=== PATIENT | male | born 1960 | race Caucasian/White ===

== ENCOUNTER → 2019-01-30 | Day surgery (SDC) | payer BC ==
[~2019-01-30] VITALS: Ht 177.8 cm; Wt 108.9 kg
[~2019-01-30] MED LIST: AMLO10TA8 PO; BUPIVAC MPF-EPI 0.5%-1:200000 30 ML VIAL. ONE; DESFLURANE 31 TO 60 MINUTES IH ONE; DEXAMETHASONE SOD PHOS 4 MG/ML VIAL ONE; GLYCOPYRROLATE 1 MG/5 ML VIAL. ONE; HYDR12.58 PO; IPRATRPIUM/ALBUTEROL 0.5/2.5MG 3 ML NEBU. NEB ONE; IV RINGERS,LACTATED 1000ML 1,000 ML IV SCH; LIDOCAINE 2% PF 5 ML VIAL. ONE; LISI-334 PO; NEOSTIGMINE METHYLSULFATE 5 MG/5 ML SYRINGE. ONE; ONDANSETRON PF 4 MG/2 ML VIAL. IV PRN; ONDANSETRON PF 4 MG/2 ML VIAL. ONE; OXYC1TAB15 PO; PROCHLORPERAZINE 10 MG/2 ML VIAL. IV PRN; PROPOFOL 20 ML IV ONE; ROCURONIUM 50 MG/5 ML VIAL. ONE; SUCCINYLCHOLINE 200 MG/10 ML VIAL. ONE; ceFAZolin 2GM PREMIX 2 GM/50 ML BAG IV ONE; fentaNYL PF VIAL 100 MCG/2 ML VIAL IV PRN; fentaNYL PF VIAL 100 MCG/2 ML VIAL ONE; oxyCODONE/APAP 5/325 1 TAB TABLET PO ONE
--- NOTE | 2019-01-30 08:42 | PDOC4 ---
Operative Note Operative Note Date: 01/30/2019 Preoperative diagnosis: Incarcerated umbilical hernia Postoperative diagnosis: Same Procedure: Robotic-assisted laparoscopic umbilical hernia repair with mesh Surgeon: Devin Specimen: None Dictation: Patient is a 58-year-old gentleman described a painful bulge at his umbilicus procedure of robotic-assisted laparoscopic hernia repair with mesh was explained to the patient in detail all risks benefits were also discussed including bleeding infection injury to intra-abdominal contents possibly necessitating further or open operations alternatives to this procedure also discussed with the patient who seemed to understand and gave both verbal and written consent to have the procedure performed. Patient was taken to the operative room placed the supine position general anesthesia was initiated once patient was sleep and intubated his abdomen was prepped and draped usual sterile fashion using ChloraPrep. An area in the left upper quadrant was injected with quarter percent Marcaine with epinephrine incision was made with 11 blade scalpel and a 5 mm Visiport was placed under direct visualization into the abdomen and a pneumoperitoneum was created 5 mm camera was placed within the abdomen which was inspected was noted that there is a small umbilical hernia incarcerated with omental fat and a few adhesions to the left of the midline. A 8mm da [place] port was placed in the left mid abdomen a 8mm da [place] port was placed in the left lower abdomen and the 5 mm Visiport was changed out for 8mm da [place] port that eventually robotic was brought in and docked all port sites using grasper and Endo Rigo scissors the adhesions were taken down off the anterior abdominal wall and the hernia contents were reduced from the hernia defect. The hernia defect was then closed with 20V LOC nonabsorbable suture. Ventral light ST mesh was then placed over the hernia defect this was sewn into place with a running 20V LOC absorbable suture. At this point the pneumoperit oneum was reduced all ports removed. The skin at all port sites were closed for septic or Monocryl Mastisol Steri-Strips and island dressings were applied. Patient was awakened and asked bated operating room taken to recovery in stable condition all sponge instrument needle counts listed as correct estimated blood loss 5 mL NAKIA GILLILAND MD Jan 30, 2019 08:42
--- NOTE | 2019-01-30 08:43 | DISCH ---
DISCHARGE INSTRUCTIONS Condition on Discharge Condition on Discharge: Stable Activity After Discharge Activity Instructions for Disc: Avoid exertion Other activity instructions: no lifting more than 20 pounds for 2 weeks Diet after Discharge Diet after Discharge: Regular Wound Incision Care Other wound/incision instructi: May shower in 24 hours Contacting the after DC Call your doctor for: If your condition worsens Follow-Up Follow up with: Dr. Gilliland in 2 weeks NAKIA GILLILAND MD Jan 30, 2019 08:43
[2019-01-30 10:00] VITALS: BP 131/70
== END ==
LOC: SURG 06:14
PROVIDERS: ATTEND Surgery
DX: K42.0 Umbilical hernia with obstruction, without gangrene (principal); I10 Essential (primary) hypertension; E78.00 Pure hypercholesterolemia, unspecified; J44.9 Chronic obstructive pulmonary disease, unspecified; E66.9 Obesity, unspecified; M19.90 Unspecified osteoarthritis, unspecified site; F17.210 Nicotine dependence, cigarettes, uncomplicated; Z98.890 Other specified postprocedural states
CPT/HCPCS: 49653; 94640; A7015; C1781; J0330; J0696; J1100; J2001; J2405; J2704; J2710; J3010; J3490; J7620; S2900

== ENCOUNTER → 2021-02-07 | Outpatient (CLI) | payer BC ==
[2019-01-30 10:00] VITALS: BP 131/70
[~2021-02-07] MED LIST changes: +AMLO-187 PO; -AMLO10TA8 PO; -BUPIVAC MPF-EPI 0.5%-1:200000 30 ML VIAL. ONE; -DESFLURANE 31 TO 60 MINUTES IH ONE; -DEXAMETHASONE SOD PHOS 4 MG/ML VIAL ONE; +GABA300C18 PO; -GLYCOPYRROLATE 1 MG/5 ML VIAL. ONE; -IPRATRPIUM/ALBUTEROL 0.5/2.5MG 3 ML NEBU. NEB ONE; -IV RINGERS,LACTATED 1000ML 1,000 ML IV SCH; -LIDOCAINE 2% PF 5 ML VIAL. ONE; -LISI-334 PO; +LISI20TA18 PO; -NEOSTIGMINE METHYLSULFATE 5 MG/5 ML SYRINGE. ONE; -ONDANSETRON PF 4 MG/2 ML VIAL. IV PRN; -ONDANSETRON PF 4 MG/2 ML VIAL. ONE; -PROCHLORPERAZINE 10 MG/2 ML VIAL. IV PRN; -PROPOFOL 20 ML IV ONE; -ROCURONIUM 50 MG/5 ML VIAL. ONE; -SUCCINYLCHOLINE 200 MG/10 ML VIAL. ONE; -ceFAZolin 2GM PREMIX 2 GM/50 ML BAG IV ONE; -fentaNYL PF VIAL 100 MCG/2 ML VIAL IV PRN; -fentaNYL PF VIAL 100 MCG/2 ML VIAL ONE; -oxyCODONE/APAP 5/325 1 TAB TABLET PO ONE
--- NOTE | 2021-02-07 15:56 | PDOC1 ---
INITIAL PAIN CONSULT DATE OF SERVICE: DOS: DATE: 02/07/21 TIME: 15:36 CHIEF COMPLAINT: Chief Complaint: Right low back and flank pain HISTORY OF PRESENT ILLNESS: 60-year-old male presents history of pain low back and flank on the right side for about 3 years beginning after a lipoma excision in this area patient reports that since the surgery he has had the pain in this area which has never improved although it is intermittent in intensity. Patient reports it is in the low back does not radiate significantly across the low back but on the right side only occasionally will radiate to his right leg in the posterior lateral aspect if he stepped down hard from a higher surface or if he is standing for prolonged periods but this is infrequent. Patient reports pain is in the right low back just lateral to the incision scar from previous lipoma excision describes it as sharp and shooting intermittent intensity some days much better than others generally does not awaken from sleep at night does not affect his bowel or bladder control but can affect his ability to walk specially when the pain is radiating into the right leg foot which again is not frequently. Patient has had physical therapy in the past has done some stretching strength exercises and uses massage techniques for the area but is not decreasing the pain significantly. Patient not found any medications have helped he tried Tylenol as well as [id number] Motrin which did not decrease the pain significantly. Patient has had no diagnostic studies this point regarding the area of the low back. PAST MEDICAL HISTORY: PMH: Hypertension, shortness of breath, cigarette smoking PREVIOUS SURGERIES: Past Surgical Hx: Tonsillectomy, umbilical hernia repair, lipoma excision CURRENT MEDICATIONS: Current Meds: Active Scripts Medications Dose Route/Sig Max Daily Dose Days Date Category Gabapentin (Gabapentin) 300 Mg Capsule 300 Mg PO BID 02/07/21 Reported Hydrochlorothiazide Tablet (Hydrochlorothiazide) 12.5 Mg Tablet 12.5 Mg PO DAILY 01/29/19 Reported Lisinopril 20 Mg Tablet 20 Mg PO BID 01/29/19 Reported ALLERGIES; Allergies: Coded Allergies: butorphanol (Verified Allergy, Severe, ANAPHYLAXIS, 01/30/19) FAMILY HISTORY: Family Hx: Heart disease SOCIAL HISTORY: Social Hx: Patient is nondrug alcohol smokes about a pack and 1/2 cigarettes and has for 45 years continues to smoke patient not use any illegal illicit or recreational drugs patient is lives in [place], [place] REVIEW OF SYSTEMS: ROS: Positive for those items mentioned in history of present illness, all systems are reviewed, otherwise negative ,and are complete full and well-documented on patient's chart. PHYSICAL EXAM: VS: Blood pressure is 155/99 pulse 88 respirations 18 temperature is 98.0 F height is 5 feet 10 inches weight is 281 pounds PE: PHYSICAL EXAMINATION: GENERAL: The patient is awake, alert, oriented, appropriate, very pleasant in demeanor HEENT: Shows normocephalic, atraumatic. Extraocular movements are intact and symmetrical NECK: Shows anterior throat supple without palpable lymphadenopathy noted. Swallow reflex symmetrical. CHEST: Shows normal on inspection. Breath sounds are clear bilaterally, coarse but no rales rhonchi or wheezes auscultated. HEART: Shows S1, S2 clear. No murmurs auscultated. ABDOMEN: Soft, nontender, nondistended, obese. No palpable organomegaly is noted. No rebound or guarding demonstrated. BACK: Shows spine grossly in the midline. Normal-appearing cervical lordotic curvature. There is slightly increased thoracic kyphosis, some flattening of the lumbar lordotic curvature. Lumbar paraspinous muscles show symmetrical on inspection, on palpation shows some moderate tenderness diffusely throughout the upper, middle and lower distribution of the paraspinous muscles bilaterally. Patient has well-healed surgical scar in the right low back in a transverse fashion. Lateral to this approximately 10 cm is very tender area of overlying skin without any palpable masses or soft tissue structures that are palpable but is very well demarcated area of about 8 cm in diameter which is very tender with palpation in the flank wall itself without radiation. The patient has good rotational motion of the lumbar spine, both laterally as well as extension and flexion without significant difficulty. No tenderness over the spinous processes, sacrum or sacroiliac regions. EXTREMITIES: Lower extremities show deep tendon reflexes 2+ in the patellar and tendo calcaneus tendons. Motor exam is 5 on a scale of 5 with right dorsiflexion, extension, quadriceps and hamstring flexion and 5/5 on the left. Peripheral pulses are 1+ posterior tibial. No peripheral edema is noted bilaterally. Lower extremities are warm and dry to touch, equal in color and appearance. SKIN: Shows warm and dry, good turgor. No edema. No sores, rashes or bruising throughout. IMPRESSION: Impression: 60-year-old male with 3-year history pain right low back and flank lateral to previous incisional scar from lipoma excision. Hypertension Shortness of breath Cigarette smoking Plan: Options were discussed with the patient including physical therapies medical management and interventional techniques. Patient would like to pursue interventional techniques. 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 We waited preauthorization with patient's insurance provider and plan on peripheral nerve block in the flank wall lateral to the surgical incision. JUAN LUIS REYES MD Feb 07, 2021 15:56
== END | disposition home or self-care (01) ==
LOC: PNCL 09:04
PROVIDERS: ATTEND Anesthesiology
DX: R10.31 Right lower quadrant pain (principal); I10 Essential (primary) hypertension; E78.00 Pure hypercholesterolemia, unspecified; J44.9 Chronic obstructive pulmonary disease, unspecified; E66.9 Obesity, unspecified; Z87.891 Personal history of nicotine dependence; Z79.899 Other long term (current) drug therapy; Z98.890 Other specified postprocedural states; Z88.8 Allergy status to other drugs, medicaments and biological substances; Z82.49 Family history of ischemic heart disease and other diseases of the circulatory system
CPT/HCPCS: G0463

== ENCOUNTER → 2021-02-15 | Outpatient (CLI) | payer BC ==
[2019-01-30 10:00] VITALS: BP 131/70
[~2021-02-15] MED LIST changes: +BUPIVACAINE MPF 0.5% 30 ML VIAL. ONE; +methylPREDNISolone ACETATE 40 MG/ML VIAL. ONE
--- NOTE | 2021-02-15 08:35 | PDOC ---
Progress Note - Pain Clinic Date of Service: DOS: DATE: 02/15/21 TIME: 08:30 Diagnosis: Dx: Right posterior flank pain, status post lipoma excision History or Present Illness: HPI: 60-year-old male returns for follow-up status post initial evaluation and preauthorization for peripheral nerve block for postoperative pain chronic, right flank at site of previous lipoma excision approximately 3 years prior. Patient reports still significant pain in the right lobe back and flank near the area of his incisional excision of lipoma. Patient reports is worse with sitting walking standing changing positions riding in his truck patient reports generally does not awaken him sleep at night feels better with laying down patient reports the pain is 8 on scale 10 is worse over the past week 8 on average 3 at its least is a 5 today patient ports sharp and shooting can be constant in the right flank fairly well localized just above the area of the previous surgical scar. Patient reports no new motor or sensory deficits no new changes. Physical Exam: VS: Blood pressure is 160/106 pulse 83 respirations 16 weight is 291 pounds PE: PHYSICAL EXAMINATION: GENERAL: The patient is awake, alert, oriented, appropriate, very pleasant in demeanor HEENT: Shows normocephalic, atraumatic. Extraocular movements are intact and symmetrical. NECK: Shows anterior throat supple without palpable lymphadenopathy noted. Swallow reflex symmetrical. CHEST: Shows normal on inspection. Breath sounds are clear bilaterally. HEART: Shows S1, S2 clear. No murmurs auscultated. ABDOMEN: Soft, nontender, nondistended. No palpable organomegaly is noted. No rebound or guarding demonstrated. BACK: Shows spine grossly in the midline. Normal-appearing cervical lordotic curvature. There is slightly increased thoracic kyphosis, some minor flattening of the lumbar lordotic curvature. Lumbar paraspinous muscles show symmetrical on inspection, on palpation shows some moderate tenderness diffusely throughout the middle and lower distribution of the paraspinous muscles bilaterally and also into the lower thoracic paraspinous musculature, firm and tender, but without specific trigger points, without radiation of pain. The patient has good rotational motion of the lumbar spine, both laterally as well as extension and flexion without significant difficulty. Patient's right posterior flank shows well-healed surgical scar in a transverse fashion in the inferior right side of the low flank approximately 5 cm above this is very significant tenderness palpation consistent with previous exam no specific radiation but very tender with palpation without radiation, again no masses are palpated no other abnormalities palpated. No tenderness over the spinous processes, sacrum or sacroiliac regions. EXTREMITIES: Lower extremities show deep tendon reflexes 2+ in the patellar and tendo calcaneus tendons. Motor exam is 5 on a scale of 5 with right dorsiflexion, extension, quadriceps and hamstring flexion and 5/5 on the left. Peripheral pulses are 1 posterior tibial. No peripheral edema is noted bilaterally. Lower extremities are warm and dry to touch, equal in color and appearance. SKIN: Shows warm and dry, good turgor. No edema. No sores, rashes or bruising throughout. Procedure: Procedure: Options were discussed with the patient. Patient chart was reviewed his his current medication regimen updated current review of systems updated today as well. We will proceed with a peripheral nerve block at the site of the painful area of the previous lipoma scar incision as well as superior to this at the area of the greatest pain. Risks discussed including but not limited to bleeding infection possibility of intravascular injection and sequelae spread local anesthetic and numbness side effects of steroid medication as well as poor results regarding pain control. Patient understands wished to proceed. Patient return to the clinic in approximately 4 weeks for follow-up, was counseled as to return appointment activity level and side effects to be aware of. Medication Injected: Med Injected: Patient sitting position under sterile prep and drape, patient's back was examined and right flank at the area of previous surgical incision identified and palpated with very firm tenderness at the incision site and superior to this. Using a 25-gauge needle field block was performed for peripheral nerve infiltration at the site of the previous surgical incision and superior to this after negative aspiration. A total of 5 cc 0.5% bupivacaine and 40 mg Depo- Medrol was injected total. Patient tolerated the procedure well and had no complications. Condition at Discharge: Condition at Discharge: Condition at discharge stable, patient already the procedure well and had no complications. JUAN LUIS REYES MD Feb 15, 2021 08:35
--- NOTE | 2021-02-15 08:36 | PDOC4 ---
PROCEDURE Procedure Patient was consented for peripheral nerve block right posterior flank. Risk were discussed including but not limited to bleeding infection possibility of intravascular injection sequelae spread of local anesthetic numbness side effects steroid medication portals regarding pain control. Patient understands wished to proceed. Patient sitting position under sterile prep and drape, patient's back was examined and right flank at the area of previous surgical incision identified and palpated with very firm tenderness at the incision site and superior to this. Using a 25-gauge needle field block was performed for peripheral nerve infiltration at the site of the previous surgical incision and superior to this after negative aspiration. A total of 5 cc 0.5% bupivacaine and 40 mg Depo- Medrol was injected total. Patient tolerated the procedure well and had no complications. JUAN LUIS REYES MD Feb 15, 2021 08:36
== END | disposition home or self-care (01) ==
LOC: PNCL 07:36
PROVIDERS: ATTEND Anesthesiology
DX: R10.9 Unspecified abdominal pain (principal); I10 Essential (primary) hypertension; E78.00 Pure hypercholesterolemia, unspecified; J44.9 Chronic obstructive pulmonary disease, unspecified; K21.9 Gastro-esophageal reflux disease without esophagitis; E66.9 Obesity, unspecified; Z87.891 Personal history of nicotine dependence; Z79.899 Other long term (current) drug therapy; Z98.890 Other specified postprocedural states
CPT/HCPCS: 64450; J1030; J3490; 20552